=== PATIENT | female | born 2000 | race Caucasian/White ===

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

== ENCOUNTER 2021-03-02 15:07 | Emergency (ER) | payer OTHER ==
[2021-03-02 15:24] VITALS: BP 116/78; PULSE 90; TEMP 98.7; BMI 32.4
[2021-03-04 07:06] LABS: SARS-CoV-2 NAA Not Detected (Not Detected)
== END 2021-03-02 17:28 | disposition home or self-care (01) ==
LOC: JER 15:07
DX: R50.9 Fever, unspecified (principal); R11.10 Vomiting, unspecified; Z11.52 Encounter for screening for COVID-19
CPT/HCPCS: 99283-25; C9803; U0003; U0005

== ENCOUNTER 2023-11-15 17:43 | Emergency (ER) | payer OTHER ==
[2023-11-15 17:52] VITALS: BP 127/65; PULSE 68; RESP 19; TEMP 97.9; BMI 32.9
[2023-11-15] MEDS ORDERED: ACETAMINOPHEN INJECTION 100 ML ONE (19:10)
[2023-11-15] MEDS ORDERED: ONDANSETRON 4 MG/2 ML VIAL ONE (19:10)
[2023-11-15] MEDS: ACETAMINOPHEN 1000 MG/100 ML BAG IVPB ONE (19:34)
[2023-11-15] MEDS: SODIUM CHLORIDE 0.9% 500 ML INFUS.BAG IV ONE (19:34)
[2023-11-15] MEDS: ONDANSETRON 4 MG/2 ML VIAL IVPUSH ONE (19:35)
[2023-11-15 19:38] LABS: BASO % 0.6 % (0-2.0); EOS % 0.8 % (0-4.5); HEMATOCRIT 34.4 % (32.4-45.2); HEMOGLOBIN 11.7 GM/dL (10.7-15.3); MCH 28.3 pg (25.7-33.7); MCHC 34.1 g/dl (32.0-36.0); MEAN CELL VOLUME 82.8 fl (80-96); MEAN PLT VOLUME 8.1 fl (7.5-11.1); MONO % 5.4 % (3.8-10.2); NEUT % 71.2 % (42.8-82.8); PLATELET COUNT 302 10^3/uL (134-434); RBC 4.15 M/mm3 (3.60-5.2); RDW 13.3 % (11.6-15.6); WHITE BLOOD COUNT 9.1 K/mm3 (4.0-10.0)
[2023-11-15 19:47] LABS: POTASSIUM 3.7 mmol/L (3.5-5.1)
[2023-11-15 19:49] LABS: ALBUMIN 3.7 g/dl (3.4-5.0); CALCIUM 8.9 mg/dL (8.5-10.1)
[2023-11-15 19:52] LABS: CREATININE 0.6 mg/dL (0.55-1.3)
[2023-11-15 19:54] LABS: BILIRUBIN,TOTAL 0.3 mg/dL (0.2-1); TOT PROT 7.3 g/dl (6.4-8.2)
[2023-11-15 20:08] LABS: EPI CELLS 28 /uL (0-25.1); HYALINE CASTS 1 /uL (0-3.1); URINE APPEARANCE CLEAR; URINE BACTERIA 1044 /uL (0-1359); URINE BILIRUBIN NEGATIVE (NEGATIVE); URINE COLOR YELLOW; URINE GLUCOSE (UA) NEGATIVE (NEGATIVE); URINE KETONE TRACE (NEGATIVE); URINE LEUK ESTERASE NEGATIVE (NEGATIVE); URINE NITRITE NEGATIVE (NEGATIVE); URINE PROTEIN NEGATIVE (NEGATIVE); URINE RBC 102 /uL (0-23.9); URINE WBC 35 /uL (0-25.8)
[2023-11-15 20:42] LABS: HIV INTERPRETATION NEGATIVE (NEGATIVE)
[2023-11-16] MEDS ORDERED: DOXYCYCLINE HYCLATE 100 MG CAPSULE PO ONE (03:16)
[2023-11-16] MEDS: DOXYCYCLINE HYCLATE 100 MG CAPSULE PO ONE (03:22)
== END 2023-11-16 03:24 | disposition home or self-care (01) ==
LOC: JER 17:43
PROC: 3E033NZ Introduction of Analgesics, Hypnotics, Sedatives into Peripheral Vein, Percutaneous Approach (ICD-10-PCS; principal; 2023-11-15)
PROC: 3E03329 Introduction of Other Anti-infective into Peripheral Vein, Percutaneous Approach (ICD-10-PCS; 2023-11-15)
PROC: 3E033GC Introduction of Other Therapeutic Substance into Peripheral Vein, Percutaneous Approach (ICD-10-PCS; 2023-11-15)
DX: N83.291 Other ovarian cyst, right side (principal); R10.13 Epigastric pain
CPT/HCPCS: 36415; 74177-TC; 76830-TC; 80053; 81003; 84703; 85025; 86803; 87086; 87389; 87491; 87591; 93005; 93010; 99285-25; J0131; Q9967